=== PATIENT | female | born 1980 | race Caucasian/White ===

== ENCOUNTER 2021-04-27 10:24 | Emergency (ER) | payer OTHER ==
[~2021-04-27] VITALS: Ht 165.1 cm; Wt 66.0 kg
[2021-04-27] MEDS ORDERED: SODIUM CHLORIDE 0.9% 1,000 ML IV ONE ×2 (11:00→13:00)
[2021-04-27 12:14] LABS: CLARITY URINE CLEAR (CLEAR); COLOR URINE YELLOW (YELLOW); KETONES URINE 4+ (NEGATIVE); LEUKOCYTE ESTERASE URINE NEGATIVE (NEGATIVE); NITRITE URINE NEGATIVE (NEGATIVE); OCCULT BLOOD URINE NEGATIVE (NEGATIVE); PROTEIN URINE NEGATIVE (NEGATIVE); SPECIFIC GRAVITY URINE 1.034 (1.005-1.030); UROBILINOGEN URINE 0.2 E.U./dL (0.2-1.0)
[2021-04-27 12:19] LABS: CHLORIDE 99 mEq/L (98-107)
[2021-04-27 12:20] LABS: BASOPHILS % 0.2 % (0.0-2.0); HEMATOCRIT. 37.6 % (36.0-48.0); LYMPHOCYTES % 7.9 % (20.0-50.0); MEAN CORPUSCULAR HEMOGLOBIN 20.7 pg (28.0-32.0); MEAN CORPUSCULAR VOLUME 70.5 fL (81.0-99.0); MONOCYTES % 3.7 % (2.0-8.0); NEUTROPHILS % 88.2 % (40.0-76.0); RED BLOOD CELL COUNT 5.33 mill/uL (4.2-5.4); RED CELL DISTRIBUTION WIDTH 18.3 % (11.6-14.6)
[2021-04-27 12:24] LABS: HCG SCREEN NEGATIVE
[2021-04-27 12:25] LABS: ETHANOL BLOOD < 10 mg/dL
[2021-04-27 12:26] LABS: *AMPHETAMINES SCREEN URINE NEGATIVE (NEGATIVE)
[2021-04-27 12:28] LABS: *BARBITURATES SCREEN URINE NEGATIVE (NEGATIVE); *BENZODIAZEPINES SCREEN URINE NEGATIVE (NEGATIVE); *COCAINE SCREEN URINE NEGATIVE (NEGATIVE); CREATINE KINASE 66 IU/L (26-192); METHADONE URINE SCREEN NEGATIVE (NEGATIVE)
[2021-04-27 12:29] LABS: CANNABINOID URINE SCREEN NEGATIVE (NEGATIVE); PHENCYCLIDINE URINE SCREEN NEGATIVE (NEGATIVE)
[2021-04-27 12:30] LABS: OPIATES URINE SCREEN NEGATIVE (NEGATIVE)
[2021-04-27] MEDS ORDERED: INSULIN REGULAR (HUMULIN R) 300UNITS/3ML VIAL SUBCUT ONE (13:00)
[2021-04-27 13:04] LABS: PLATELET 296 x1000/uL (130-400)
[2021-04-27] MEDS ORDERED: ONDANSETRON HCL 4MG/2ML INJ IV ONE (14:30)
[2021-04-27] MEDS ORDERED: ONDA4TAB5 MT (17:03)
[2021-04-27 17:26] VITALS: BP 118/72
== END 2021-04-27 17:28 | disposition left against medical advice (07) ==
LOC: ER 10:24
DX: E11.65 Type 2 diabetes mellitus with hyperglycemia (principal); R11.2 Nausea with vomiting, unspecified; R41.82 Altered mental status, unspecified; G31.1 Senile degeneration of brain, not elsewhere classified; R00.0 Tachycardia, unspecified; Z79.4 Long term (current) use of insulin
CPT/HCPCS: 36415; 70450; 80053; 80305; 80320; 81003; 81025; 82140; 82550; 82962; 83690; 84443; 84703; 85025; 93005; 96361; 96372; 96374; 99285; J1815; J2405; J7030; G0480